=== PATIENT | female | born 1975 | race African-American/Black ===

== ENCOUNTER 2017-03-30 13:22 | Observation (INO) | payer MEDICAID ==
[~2017-03-30] VITALS: Ht 149.9 cm; Wt 46.5 kg
[~2017-03-30 13:22] MED LIST: ALBU8.5H8; BENZ2AMP4 PO; DIVA250T4; QUET300T5; RISP0.5T24
[2017-03-30 14:16] LABS: HEMATOCRIT 46.8 % (34.6-47.8); HEMOGLOBIN 15.7 g/dL (11.7-16.4); WHITE BLOOD COUNT 9.6 x10^3/uL (3.4-10)
[2017-03-30 14:20] LABS: DAU SCREEN DISCLAIMER
[2017-03-30 14:31] LABS: BLOOD UREA NITROGEN 13 mg/dL (7-18)
[2017-03-30 14:35] LABS: ACETAMINOPHEN < 2 mcg/mL (10-30)
[2017-03-30] MEDS ORDERED: BISACODYL 10 MG SUPP PR PRN (16:30)
[2017-03-30] MEDS ORDERED: POLYETHYLENE GLYCOL 17 GM PACKET PO PRN (16:30)
[2017-03-30] MEDS ORDERED: ONDANSETRON ODT 4 MG PO PRN (16:30)
[2017-03-30] MEDS ORDERED: DOCUSATE 100 MG CAPSULE PO PRN (16:30)
[2017-03-30] MEDS: ACETAMINOPHEN 325 MG TABLET PO PRN (19:54)
[2017-03-30] MEDS: NICOTINE 14MG/24 HR PATCH.TD24 TD SCH (20:25)
[2017-03-30 20:44] VITALS: BP 92/60
[2017-03-31 07:26] VITALS: BP 106/72
[2017-03-31] MEDS: LORazepam 1MG TABLET PO PRN ×2 (11:38→21:43)
[2017-03-31 19:36] VITALS: BP 93/53
[2017-03-31] MEDS: NICOTINE 14MG/24 HR PATCH.TD24 TD SCH (20:50)
[2017-04-01 07:59] VITALS: BP 85/58
[2017-04-01] MEDS: LORazepam 1MG TABLET PO PRN ×2 (15:21→20:45)
[2017-04-01 19:40] VITALS: BP 90/57
[2017-04-01] MEDS: NICOTINE 14MG/24 HR PATCH.TD24 TD SCH (20:47)
[2017-04-02 07:56] VITALS: BP 98/68
[2017-04-02] MEDS: ACETAMINOPHEN 325 MG TABLET PO PRN (08:54)
[2017-04-02] MEDS ORDERED: POLYETHYLENE GLYCOL 17 GM PACKET PO PRN (19:30)
[2017-04-02] MEDS ORDERED: DOCUSATE 100 MG CAPSULE PO PRN (19:30)
[2017-04-02] MEDS ORDERED: ONDANSETRON ODT 4 MG PO PRN (19:30)
[2017-04-02] MEDS ORDERED: BISACODYL 10 MG SUPP PR PRN (19:30)
[2017-04-02 19:54] VITALS: BP 93/56
[2017-04-02] MEDS: NICOTINE 14MG/24 HR PATCH.TD24 TD SCH (20:25)
[2017-04-02] MEDS: QUETIAPINE 100MG TABLET PO SCH (20:26)
[2017-04-02] MEDS ORDERED: QUETIAPINE 100MG TABLET PO SCH (21:00)
[2017-04-02] MEDS: LORazepam 1MG TABLET PO PRN (22:23)
[2017-04-03 08:30] VITALS: BP 104/75
[2017-04-03] MEDS: LORazepam 1MG TABLET PO PRN (16:48)
[2017-04-03 20:32] VITALS: BP 101/69
[2017-04-03] MEDS: ACETAMINOPHEN 325 MG TABLET PO PRN (20:43)
[2017-04-03] MEDS: QUETIAPINE 100MG TABLET PO SCH (20:43)
[2017-04-03] MEDS: NICOTINE 14MG/24 HR PATCH.TD24 TD SCH (20:43)
[2017-04-04 08:30] VITALS: BP 97/63
[2017-04-04 12:14] LABS: HCG UR OBC PASS
[2017-04-04] MEDS: LORazepam 1MG TABLET PO PRN (16:03)
[2017-04-04 19:21] VITALS: BP 92/66
[2017-04-04] MEDS: QUETIAPINE 100MG TABLET PO SCH (20:16)
[2017-04-04] MEDS: NICOTINE 14MG/24 HR PATCH.TD24 TD SCH (20:17)
[2017-04-04] MEDS: ACETAMINOPHEN 325 MG TABLET PO PRN (20:17)
[2017-04-05] MEDS: LORazepam 1MG TABLET PO PRN ×4 (04:14→23:46)
[2017-04-05 07:56] VITALS: BP 84/57
[2017-04-05] MEDS ORDERED: ALBUTEROL SULFATE 2.5 MG/3 ML NPPB PRN ×2 (15:30→18:00)
[2017-04-05 19:51] VITALS: BP 99/60
[2017-04-05] MEDS: QUETIAPINE 100MG TABLET PO SCH (20:22)
[2017-04-05] MEDS: NICOTINE 14MG/24 HR PATCH.TD24 TD SCH (20:22)
[2017-04-06 07:52] VITALS: BP 97/67
[2017-04-06] MEDS: LORazepam 1MG TABLET PO PRN ×2 (11:13→22:51)
[2017-04-06 19:19] VITALS: BP 101/66
[2017-04-06] MEDS: QUETIAPINE 100MG TABLET PO SCH (20:33)
[2017-04-06] MEDS: NICOTINE 14MG/24 HR PATCH.TD24 TD SCH (21:00)
[2017-04-07 08:00] VITALS: BP 91/57
[2017-04-07] MEDS ORDERED: QUET100T PO (14:20)
[2017-04-07] MEDS ORDERED: DIVA500T4 PO (14:20)
[2017-04-07] MEDS ORDERED: BENZ2AMP4 PO (14:20)
[2017-04-07] MEDS ORDERED: RISP0.5T3 PO (14:20)
== END 2017-04-07 14:36 | disposition home or self-care (01) ==
LOC: ED 15:44 → EDIP 15:45 → ED 15:48 → 3E 18:10
PROVIDERS: ADMIT Hospitalist; ATTEND Hospitalist
DX: R45.851 Suicidal ideations (principal); F33.2 Major depressive disorder, recurrent severe without psychotic features; J45.909 Unspecified asthma, uncomplicated; F20.9 Schizophrenia, unspecified; F31.9 Bipolar disorder, unspecified; F17.210 Nicotine dependence, cigarettes, uncomplicated; Z59.0 Homelessness; Z87.891 Personal history of nicotine dependence; Z91.14 Patient's other noncompliance with medication regimen; Z91.5 Personal history of self-harm; Z81.8 Family history of other mental and behavioral disorders; Z82.5 Family history of asthma and other chronic lower respiratory diseases
CPT/HCPCS: 36415; 80048; 80307; 80329; 81025; 82040; 84439; 84443; 85025; 99285; G0378; G0479; G0480

== ENCOUNTER 2017-06-04 11:41 | Emergency (ER) | payer MEDICAID ==
[~2017-06-04] VITALS: Ht 149.9 cm; Wt 50.0 kg
[~2017-06-04 11:41] MED LIST changes: +DIVA500T4 PO; +QUET100T PO; +RISP0.5T3 PO
[2017-06-04] MEDS ORDERED: ONDANSETRON 2MG/ML, 2ML ONE (12:20)
[2017-06-04] MEDS ORDERED: morphine SULFATE 10 MG/ML, 1ML ONE (12:22)
[2017-06-04 12:24] LABS: HEMATOCRIT 46.4 % (34.6-47.8); HEMOGLOBIN 15.8 g/dL (11.7-16.4); WHITE BLOOD COUNT 7.4 x10^3/uL (3.4-10)
[2017-06-04] MEDS ORDERED: ONDANSETRON 2MG/ML, 2ML IVPush ONE (12:30)
[2017-06-04] MEDS ORDERED: MORPHINE SULFATE 4 MG/ML, 1ML IVPush PRN (12:30)
[2017-06-04] MEDS ORDERED: SODIUM CHLORIDE FLUSH 10ML SYR IVF ONE (12:30)
[2017-06-04] MEDS ORDERED: SODIUM CHLORIDE 0.9% 1,000ML IVBOLUS ONE (12:30)
[2017-06-04 12:36] LABS: BLOOD UREA NITROGEN 14 mg/dL (7-18)
[2017-06-04] MEDS ORDERED: OMNIPAQUE 350 MG/ML, 100ML BOTTLE ONE (13:19)
[2017-06-04] MEDS ORDERED: AMPICILLIN/SULBACTAM 3 GM in SODIUM CHLORIDE 0.9% 100 ML IV ONE (14:30)
[2017-06-04 14:57] VITALS: BP 125/77
== END 2017-06-04 15:47 | disposition home or self-care (01) ==
LOC: ED 12:33
DX: K11.21 Acute sialoadenitis (principal); L04.0 Acute lymphadenitis of face, head and neck; J45.909 Unspecified asthma, uncomplicated; F31.9 Bipolar disorder, unspecified; F19.10 Other psychoactive substance abuse, uncomplicated; Z90.710 Acquired absence of both cervix and uterus; Z90.89 Acquired absence of other organs; Z98.890 Other specified postprocedural states; Z88.8 Allergy status to other drugs, medicaments and biological substances; Z79.899 Other long term (current) drug therapy
CPT/HCPCS: 36415; 70491; 80048; 82040; 85025; 96361; 96365; 96375; 99285; J0295; J2405; J7030; Q9967